=== PATIENT | male | born 1975 | race Caucasian/White ===

== ENCOUNTER 2017-05-18 10:54 | Emergency (ER) | payer BC ==
[2017-05-18] MEDS ORDERED: Aspirin 81 MG Tab.Chew PO ONE (11:37)
--- NOTE | 2017-05-18 11:40 | EDM.PDOC ---
ED HPI GENERAL MEDICAL PROBLEM - General Chief Complaint: Chest Pain Stated Complaint: CHEST DISCOMFORT X 1 WEEK Time Seen by Provider: 05/18/17 11:26 Source of Information: Reports: Patient History Limitations: Reports: No Limitations - History of Present Illness INITIAL COMMENTS - FREE TEXT/NARRATIVE: Patient is a 41 y/o male who presents to the E.D. complaining of intermittent chest discomfort to left lateral/anterior chest. Patient states is just a faint discomfort rated a 1 out of 10 unable to completely described the type of pain. Pain comes and goes with no precipitating factors. Pain is not worse with palpation or taking a deep breath. Chest Pain Score (Numeric/FACES): 1 - Related Data Allergies Allergy/AdvReac Type Severity Reaction Status Date / Time No Known Allergies Allergy Verified 05/18/17 11:08 Home Meds: Home Meds . [No Known Home Meds] 05/18/17 [History] Past Medical History - Past Health History Medical/Surgical History: Denies Medical/Surgical History Social & Family History - Tobacco Use Smoking Status *Q: Never Smoker - Recreational Drug Use Recreational Drug Use: No ED ROS GENERAL - Review of Systems Review Of Systems: ROS reveals no pertinent complaints other than HPI. ED EXAM, GENERAL - Physical Exam Exam: See Below Exam Limited By: No Limitations General Appearance: Alert, WD/WN, No Apparent Distress Ears: Hearing Grossly Normal Nose: Normal Inspection Throat/Mouth: Normal Voice, No Airway Compromise Neck: Normal Inspection, Supple Respiratory/Chest: No Respiratory Distress, Lungs Clear, Normal Breath Sounds, No Accessory Muscle Use, Chest Non-Tender Cardiovascular: Normal Peripheral Pulses, Regular Rate, Rhythm, No Murmur Peripheral Pulses: 4+: Radial (L), Radial (R) GI/Abdominal: Normal Bowel Sounds, Soft, Non-Tender, No Organomegaly, No Distention Extremities: Normal Inspection, Non-Tender, No Pedal Edema Neurological: Alert, Oriented, CN II-XII Intact, Normal Cognition Psychiatric: Normal Affect, Normal Mood Skin Exam: Warm, Dry, Intact, Normal Color Course - Vital Signs Last Recorded V/S: Last Vital Signs Temp 98.0 F 05/18/17 11:08 Pulse 78 05/18/17 13:40 Resp 18 05/18/17 13:40 BP 115/81 05/18/17 13:40 Pulse Ox 99 05/18/17 13:40 - Orders/Labs/Meds Orders: Active Orders 24 hr Category Date Time Status EKG Documentation Completion [RC] STAT Care 05/18/17 11:35 Active Labs: Laboratory Tests 05/18/17 05/18/17 05/18/17 Range/Units 11:37 11:37 11:37 WBC 5.21 (4.23-9.07) K/mm3 RBC 4.99 (4.63-6.08) M/mm3 Hgb 15.4 (13.7-17.5) gm/L Hct 43.1 (40.1-51.0) % MCV 86.4 (79.0-92.2) fl MCH 30.9 (25.7-32.2) pg MCHC 35.7 H (32.2-35.5) g/dl RDW Std Deviation 39.1 (35.1-43.9) fL Plt Count 285 (163-337) K/mm3 MPV 9.6 (9.4-12.3) fl Neutrophils % (Manual) 69 H (40-60) % Band Neutrophils % 0 (0-10) % Lymphocytes % (Manual) 23 (20-40) % Immat Monocytes % (Man) 0 Monocytes % (Manual) 8 (2-10) % Eosinophils % (Manual) 0 L (0.8-7.0) % Basophils % (Manual) 0 L (0.2-1.2) Metamyelocytes % 0 Myelocytes % 0 Promyelocytes % 0 Blast Cells % 0 Plasma Cell % (Manual) 0 Platelet Estimate Adequate Plt Morphology Comment See note RBC Morph Comment Normal PT 11.2 (8.0-13.0) SECONDS INR 1.05 APTT 27 (22-36) SECONDS Sodium 138 (136-145) mEq/L Potassium 4.3 (3.5-5.1) mEq/L Chloride 102 (98-107) mEq/L Carbon Dioxide 27 (21-32) mEq/L Anion Gap 13.3 (5-15) BUN 19 H (7-18) mg/dL Creatinine 0.9 (0.7-1.3) mg/dL Est Cr Clr Drug Dosing 113.88 mL/min Estimated GFR (MDRD) > 60 (>60) mL/min BUN/Creatinine Ratio 21.1 H (14-18) Glucose 104 (74-106) mg/dL Calcium 9.5 (8.5-10.1) mg/dL Total Bilirubin 1.1 H (0.2-1.0) mg/dL AST 13 L (15-37) U/L ALT 20 (16-63) U/L Alkaline Phosphatase 46 (46-116) U/L Troponin I < 0.017 (0.00-0.056) ng/mL Total Protein 7.4 (6.4-8.2) g/dl Albumin 4.4 (3.4-5.0) g/dl Globulin 3.0 gm/dL Albumin/Globulin Ratio 1.5 (1-2) Meds: Medications Discontinued Medications Generic Name Dose Route Start Last Admin Trade Name Freq PRN Reason Stop Dose Admin Aspirin 324 mg 05/18/17 11:37 05/18/17 12:33 Aspirin PO 05/18/17 11:38 324 mg ONETIME ONE Administration - Re-Assessments/Exams Free Text/Narrative Re-Assessment/Exam: EKG: sinus rhythm with no ischemic changes. Rate is 81. PERC rule negative. Initial labs and studies ordered: CBC, C14, Coag's, troponin, and cxr. ASA 324 mg PO. CBC and chemistry panel were essentially normal. Troponin was normal as well. Chest x-ray within normal limits. Do not believe this is related to the heart. Symptoms haven't intermittent for quite some time. At times it does hurt with palpation and also movement. This is suggest more muscular skeletal in nature. Plan is to discharge him home with close follow-up with PCP for reevaluation the end of this week or first part of next week. Patient agrees with plan. Return precautions discussed with him. Discharge instructions as documented. Departure - Departure Time of Disposition: 13:10 Disposition: Home, Self-Care 01 Condition: Good Clinical Impression: Atypical chest pain Instructions: Chest Wall Pain, [id number], Nonspecific Chest Pain, Nonspecific Chest Pain, [id number] Referrals: Amadeo Dacosta MD [Primary Care Provider] - Forms: ED Department Discharge Additional Instructions: As discussed all labs and chest x-ray were essentially normal. EKG did not reveal any concerning findings. History of present illness suggest atypical chest/chest wall pain. Thus will have you follow-up with PCP this week or first part of next week for reevaluation. Return to ED if he developed any new or worsening symptoms. - My Orders Last 24 Hours: My Active Orders 05/18/17 11:35 EKG Documentation Completion [RC] STAT - Assessment/Plan Last 24 Hours: My Active Orders 05/18/17 11:35 EKG Documentation Completion [RC] STAT
--- NOTE | 2017-05-18 14:51 | CR ---
Chest: Portable view of the chest was obtained. Comparison: No prior chest x-ray. Heart size and mediastinum are normal. Lungs are clear. Bony structures are grossly intact. Impression: 1. Nothing acute is identified on portable chest x-ray. Diagnostic code #1
== END 2017-05-18 13:40 | disposition home or self-care (01) ==
LOC: JD.ED 10:54
DX: R07.89 Other chest pain (principal)
CPT/HCPCS: 36415; 71045; 80053; 84484; 85025; 85610; 85730; 93005; 99285; A9270